=== PATIENT | male | born 1975 | race Caucasian/White ===

== ENCOUNTER 2018-04-05 19:40 | Observation (INO) | payer MEDICAID ==
[2018-04-05] MEDS: SOD CHLORIDE 0.9% 500 ML IV (21:37)
[2018-04-05] MEDS: morphine 4 MG/ML VIAL IV (21:37)
[2018-04-05] MEDS: LIDOCAINE/MYLANTA 40 ML BTL PO (21:38)
[2018-04-05] MEDS: FAMOTIDINE 20 MG INJ IV (21:38)
[2018-04-05 21:39] LABS: ADD MAN DIFF? NO
[2018-04-05] MEDS: ONDANSETRON 4 MG INJ IV (21:43)
[2018-04-05 21:47] LABS: WHITE BLOOD COUNT 17.9 10^3/ul (4.8-10.8)
[2018-04-05 21:47] LABS: BASOPHIL # 0.1 10^3/ul (0.0-0.1); BASOPHILS % 0.3 % (0.0-2.0); EOSINOPHILS % 0.1 % (0.0-7.0); HEMATOCRIT 44.8 % (42.0-52.0); HEMOGLOBIN 16.1 g/dl (14.0-18.0); LYMPHOCYTES # 1.3 10^3/ul (0.8-2.9); LYMPHOCYTES % 7.5 % (15.0-51.0); MEAN CORPUSCULAR HEMOGLOBIN 30.7 pg (29.0-33.0); MEAN CORPUSCULAR HGB CONC 35.9 g/dl (32.0-37.0); MEAN CORPUSCULAR VOLUME 85.5 fl (82.0-101.0); MEAN PLATELET VOLUME 10.1 fl (7.4-10.4); MONOCYTE # 0.5 10^3/ul (0.3-0.9); MONOCYTES % 2.6 % (0.0-11.0); NEUTROPHIL # 15.9 10^3/ul (1.6-7.5); PLATELET COUNT 307 10^3/UL (140-415); RED BLOOD COUNT 5.24 10^6/ul (4.70-6.10); RED CELL DISTRIBUTION WIDTH 12.4 % (11.5-14.5)
[2018-04-05 21:52] LABS: ADD UMIC YES; UR AMORPHOUS CRYSTAL MANY /HPF (NONE SEEN); UR ASCORBIC ACID NEGATIVE (NEGATIVE); UR BACTERIA FEW /HPF (NONE SEEN); UR BILIRUBIN (Dip) NEGATIVE (NEGATIVE); UR BLOOD (Dip) 1+ mg/dL (NEGATIVE); UR CLARITY CLOUDY (CLEAR); UR COLOR YELLOW (YELLOW); UR GLUCOSE (Dip) NEGATIVE (NEGATIVE); UR KETONES (Dip) NEGATIVE (NEGATIVE); UR LEUKOCYTE ESTERASE (Dip) NEGATIVE Leu/ul (NEGATIVE); UR NITRITE (Dip) NEGATIVE (NEGATIVE); UR RBC 8 /HPF (0-5); UR SPECIFIC GRAVITY (Dip) 1.012 (1.003-1.030); UR TOTAL PROTEIN (Dip) 1+ mg/dl (NEGATIVE); UR UROBILINOGEN (Dip) NEGATIVE (NEGATIVE); UR WBC 5 /HPF (0-5)
[2018-04-05 22:10] LABS: ALANINE AMINOTRANSFERASE 29 IU/L (13-69); ALBUMIN 4.9 g/dl (3.3-4.9); ALBUMIN/GLOBULIN RATIO 1.44; ALKALINE PHOSPHATASE 106 IU/L (42-121); ANION GAP 13 (5-13); ASPARTATE AMINO TRANSFERASE 25 IU/L (15-46); BILIRUBIN,INDIRECT 0.9 mg/dl (0-1.1); BILIRUBIN,TOTAL 0.9 mg/dl (0.2-1.3); BLOOD UREA NITROGEN 13 mg/dl (7-20); CALCIUM 9.2 mg/dl (8.4-10.2); CARBON DIOXIDE 30 mmol/L (21-31); CHLORIDE 100 mmol/L (97-110); CREATININE 0.77 mg/dl (0.61-1.24); Estimated GFR > 60 mL/min (>60); GLUCOSE 137 mg/dl (70-220); LIPASE 75 U/L (23-300); POTASSIUM 3.6 mmol/L (3.5-5.1); SODIUM 143 mmol/L (135-144); TOTAL PROTEIN 8.3 g/dl (6.1-8.1)
[2018-04-05 22:17] LABS: TROPONIN-I < 0.012 ng/ml (0.000-0.120)
[2018-04-05] MEDS: hydrALAzine 20 MG INJ IV (22:48)
[2018-04-05] MEDS ORDERED: HYDROCODONE/APAP (5/325) TAB PO (23:30)
[2018-04-05] MEDS ORDERED: ACETAMINOPHEN 325 MG TAB PO (23:30)
[2018-04-05] MEDS ORDERED: NITROGLYCERIN (SL) 0.4 MG TAB SL (23:30)
[2018-04-05] MEDS ORDERED: ONDANSETRON 4 MG INJ IV (23:30)
[2018-04-05] MEDS ORDERED: NACL 0.9% 3 ML SYG IV (23:30)
[2018-04-06 00:15] LABS: CREATINE KINASE 85 IU/L (23-200)
[2018-04-06 00:28] LABS: CK INDEX 1.1; CK-MB 0.91 ng/ml (0.0-2.4); TROPONIN-I < 0.012 ng/ml (0.000-0.120)
[2018-04-06] MEDS: METOPROLOL 25 MG TAB PO ×3 (03:26→20:20)
[2018-04-06] MEDS: PIPER-TAZO 3.375 GM IV (PMX) 100 ML IVPB ×4 (04:27→22:44)
[2018-04-06 05:34] LABS: ADD MAN DIFF? NO
[2018-04-06 05:37] LABS: BASOPHIL # 0.1 10^3/ul (0.0-0.1); BASOPHILS % 0.3 % (0.0-2.0); EOSINOPHILS # 0.1 10^3/ul (0.0-0.5); EOSINOPHILS % 0.7 % (0.0-7.0); HEMATOCRIT 42.5 % (42.0-52.0); HEMOGLOBIN 14.9 g/dl (14.0-18.0); LYMPHOCYTES # 2.2 10^3/ul (0.8-2.9); LYMPHOCYTES % 14.4 % (15.0-51.0); MEAN CORPUSCULAR HEMOGLOBIN 30.3 pg (29.0-33.0); MEAN CORPUSCULAR HGB CONC 35.1 g/dl (32.0-37.0); MEAN CORPUSCULAR VOLUME 86.6 fl (82.0-101.0); MEAN PLATELET VOLUME 9.9 fl (7.4-10.4); MONOCYTE # 1.1 10^3/ul (0.3-0.9); MONOCYTES % 6.8 % (0.0-11.0); NEUTROPHIL # 11.9 10^3/ul (1.6-7.5); NEUTROPHILS % 77.4 % (39.0-77.0); PLATELET COUNT 293 10^3/UL (140-415); RED BLOOD COUNT 4.91 10^6/ul (4.70-6.10); RED CELL DISTRIBUTION WIDTH 12.6 % (11.5-14.5)
[2018-04-06 05:37] LABS: WHITE BLOOD COUNT 15.4 10^3/ul (4.8-10.8)
[2018-04-06 05:54] LABS: HEMOGLOBIN A1C 5.3 % (0-5.9)
[2018-04-06 05:59] LABS: CREATINE KINASE 54 IU/L (23-200)
[2018-04-06 06:01] LABS: ALANINE AMINOTRANSFERASE 21 IU/L (13-69); ALBUMIN 4.3 g/dl (3.3-4.9); ALBUMIN/GLOBULIN RATIO 1.79; ALKALINE PHOSPHATASE 69 IU/L (42-121); ANION GAP 14 (5-13); ASPARTATE AMINO TRANSFERASE 21 IU/L (15-46); BILIRUBIN,INDIRECT 1.4 mg/dl (0-1.1); BILIRUBIN,TOTAL 1.4 mg/dl (0.2-1.3); BLOOD UREA NITROGEN 14 mg/dl (7-20); CALCIUM 9.2 mg/dl (8.4-10.2); CARBON DIOXIDE 27 mmol/L (21-31); CHLORIDE 103 mmol/L (97-110); CHOL/HDL RATIO 3.8 RATIO; CHOLESTEROL 146 mg/dl (100-200); CREATININE 0.69 mg/dl (0.61-1.24); Estimated GFR > 60 mL/min (>60); GLUCOSE 114 mg/dl (70-220); HDL CHOLESTEROL 38 mg/dl (27-67); LDL CHOLESTEROL,CALCULATED 86 mg/dl; MAGNESIUM 2.2 mg/dl (1.7-2.5); SODIUM 144 mmol/L (135-144); TOTAL PROTEIN 6.7 g/dl (6.1-8.1); TRIGLYCERIDES 110 mg/dl (0-149)
[2018-04-06 06:12] LABS: CK INDEX 1.4; CK-MB 0.74 ng/ml (0.0-2.4); TROPONIN-I < 0.012 ng/ml (0.000-0.120)
[2018-04-06] MEDS: ASPIRIN 81 MG TAB PO (09:03)
[2018-04-06] MEDS: SUCRALFATE 1 GM TAB PO ×3 (09:03→17:31)
[2018-04-06] MEDS: FAMOTIDINE 20 MG TAB PO ×2 (09:03→20:20)
[2018-04-06] MEDS: ENOXAPARIN 40 MG/0.4 ML SYG SC (09:05)
[2018-04-06 12:41] LABS: OCCULT BLOOD STOOL NEGATIVE (NEGATIVE)
[2018-04-07] MEDS: PIPER-TAZO 3.375 GM IV (PMX) 100 ML IVPB ×2 (04:44→10:08)
[2018-04-07] MEDS: SUCRALFATE 1 GM TAB PO ×3 (08:19→18:02)
[2018-04-07] MEDS: METOPROLOL 25 MG TAB PO ×2 (08:20→20:50)
[2018-04-07] MEDS: FAMOTIDINE 20 MG TAB PO ×2 (08:20→20:50)
[2018-04-07] MEDS: ENOXAPARIN 40 MG/0.4 ML SYG SC (08:23)
[2018-04-07] MEDS: PEG/ELECTROLYTES 4L BTL PO (14:48)
[2018-04-07] MEDS ORDERED: hydrALAzine 20 MG INJ IV (21:00)
[2018-04-08] MEDS ORDERED: PROPOFOL 200 MG INJ (07:00)
[2018-04-08] MEDS: SUCRALFATE 1 GM TAB PO ×2 (07:55→13:39)
[2018-04-08] MEDS: FAMOTIDINE 20 MG TAB PO (08:06)
[2018-04-08] MEDS: METOPROLOL 25 MG TAB PO (08:47)
[2018-04-08 09:14] LABS: ANION GAP 11 (5-13); BLOOD UREA NITROGEN 13 mg/dl (7-20); CALCIUM 9.1 mg/dl (8.4-10.2); CARBON DIOXIDE 27 mmol/L (21-31); CHLORIDE 102 mmol/L (97-110); CREATININE 0.86 mg/dl (0.61-1.24); Estimated GFR > 60 mL/min (>60); GLUCOSE 93 mg/dl (70-220); POTASSIUM 3.8 mmol/L (3.5-5.1); SODIUM 140 mmol/L (135-144)
[2018-04-08] MEDS ORDERED: PROPOFOL 60 ML (12:01)
[2018-04-08] MEDS ORDERED: LIDOCAINE 100 MG SYRINGE (12:02)
[2018-04-08] MEDS: ENOXAPARIN 40 MG/0.4 ML SYG SC (13:40)
== END 2018-04-08 19:00 | disposition home or self-care (01) ==
LOC: TEL 22:24 → MS1 04-08 10:48 → E/R 19:40
DX: R07.89 Other chest pain (principal); K64.4 Residual hemorrhoidal skin tags; I10 Essential (primary) hypertension
CPT/HCPCS: 36415; 71045; 74176; 80048; 80053; 80061; 81001; 82270; 82550; 82553; 83036; 83690; 83735; 84443; 84484; 85025; 87045; 93005; 96374; 96375; 99217; 99285-25; G0378